=== PATIENT | male | born 1955 | race African-American/Black ===

== ENCOUNTER 2017-12-18 03:46 | Emergency (ER) | payer OTHER ==
[2017-12-18 04:28] LABS: #Basophils 0.1 thou/uL (0.0-0.2); #Eosinphils 0.3 thou/uL (0.0-0.7); #Lymphocytes 3.3 thou/uL (1.20-3.40); #Monocytes 0.8 thou/uL (0.11-0.59); #Neutrophils 4.5 thou/uL (1.40-6.50); %Basophils 1.4 % (0.0-1.0); %Eosinophils 3.7 % (0.0-10.0); %Monocytes 8.3 % (0.0-10.0); %Neutrophils 49.6 % (42.0-75.0); Hemoglobin 13.3 g/dL (14.0-18.0); Mean Corpuscular HGB CONC 32.6 g/dL (32.0-36.0); Mean Corpuscular Hemoglobin 30.5 pg (27.0-31.0); Mean Corpuscular Volume 93.7 fl (80.0-94.0); Mean Platelet Volume 8.3 fL (7.4-10.4); Platelet Count 238 thou/uL (130-400); RBC Distribution Width 11.9 % (11.5-14.5); Red Blood Cell (RBC) Count 4.37 mill/uL (4.70-6.10)
[2017-12-18 04:43] LABS: ALT (SGPT) 16 U/L (8-55); AST (SGOT) 16 U/L (5-34); Albumin 4.2 g/dL (3.4-4.8); Alkaline Phosphatase 51 U/L (40-150); Anion Gap 13 mmol/L (10-20); BUN (Urea Nitrogen) 16 mg/dL (8.4-25.7); Bilirubin, Total 0.3 mg/dL (0.2-1.2); CK (CPK) 297 U/L (30-200); Calc. Creatinine Clearance 0 mL/min (70-130); Calcium 9.6 mg/dL (7.8-10.44); Carbon Dioxide 24 mmol/L (23-31); Chloride 105 mmol/L (98-107); Estimated GFR-MDRD Greater than 90; Glucose 128 mg/dL (80-115); Potassium 3.7 mmol/L (3.5-5.1); Protein, Total 7.2 g/dL (5.8-8.1); Sodium 138 mmol/L (136-145)
[2017-12-18 04:46] LABS: CKMB 1.9 ng/mL (0-6.6); Troponin I Less than 0.010 ng/mL (< 0.028)
--- NOTE | 2017-12-18 07:41 | RAD ---
CHEST 1 VIEW: Date: 12/18/17 HISTORY: Two days of chest pain. COMPARISON: None. FINDINGS: Portable upright chest demonstrates slight elongation of aorta. Normal cardiac silhouette. Pulmonary vessels and pulmonary hilum are normal. No consolidation or mass. No pneumothorax or osseous abnormal ities. IMPRESSION: No acute cardiopulmonary process. POS: [facility]
--- NOTE | 2017-12-22 17:49 | EKG ---
Test Reason : CHEST PAIN Blood Pressure : / mmHG Vent. Rate : 067 BPM Atrial Rate : 067 BPM P-R Int : 166 ms QRS Dur : 092 ms QT Int : 412 ms P-R-T Axes : 052 015 032 degrees QTc Int : 435 ms Sinus rhythm with Premature atrial complexes Otherwise normal ECG Confirmed by SOCORRO ALSTON D.O. ([id number]), assistant film editor ELLYN BELLO ([id number]) on 12/22/2017 5:48:17 PM Referred By: TANNER ALSTON Confirmed By:SOCORRO ALSTON D.O.
== END 2017-12-18 05:40 | disposition home or self-care (01) ==
LOC: ERS 03:46
DX: R07.2 Precordial pain (principal)
CPT/HCPCS: 71045; 80053; 82550; 82553; 83880; 84484; 85025; 85379; 93005